=== PATIENT | female | born 1990 | race Caucasian/White ===

== ENCOUNTER 2023-02-12 18:15 | Emergency (ER) | payer OTHER ==
[~2023-02-12] VITALS: Ht 160 cm; Wt 79.4 kg
[2023-02-12 18:23] VITALS: BP 119/79; PULSE 97; RESP 17; TEMP 97.9; O2SAT 100
[2023-02-12] MEDS ORDERED: ONDANSETRON 4 MG ODT PO ONE (18:35)
[2023-02-12] MEDS ORDERED: KETOROLAC 30 MG/ML VIAL IVP ONE (18:55)
[2023-02-12] MEDS ORDERED: NACL 0.9% 1,000 ML IV ONE (18:55)
[2023-02-12 19:10] LABS: BASOPHILS % (AUTO) 0.4 % (0.0-2.0); EOSINOPHILS # (AUTO) 0.1 K/uL (0-0.4); EOSINOPHILS % (AUTO) 0.7 % (0.0-4.0); HEMATOCRIT 40.2 % (36-48); HEMOGLOBIN 13.6 g/dL (12.0-16.0); LYMPHOCYTES # (AUTO) 1.7 K/uL (2.5-16.5); LYMPHOCYTES % (AUTO) 21.4 % (20.5-51.1); MEAN CORPUSCULAR HEMOGLOBIN 31 pg (27-31); MEAN CORPUSCULAR HGB CONC 34 g/dL (33-37); MONOCYTES # (AUTO) 0.4 K/uL (0.8-1.0); MONOCYTES % (AUTO) 4.8 % (1.7-9.3); NEUTROPHILS # (AUTO) 5.9 K/uL (1.8-7.7); NEUTROPHILS % (AUTO) 72.7 % (42.2-75.2); PLATELET COUNT (AUTO) 242 K/uL (140-450); RED BLOOD CELL COUNT(AUTO) 4.37 MIL/uL (4.20-5.40); RED CELL DISTRIBUTION WIDTH 13.7 % (11.6-13.7); WHITE BLOOD COUNT (AUTO) 8.1 K/uL (4.8-10.8)
[2023-02-12 19:28] LABS: ANION GAP 16.2 (8-16); CALCIUM 8.6 mg/dL (8.5-10.1); CARBON DIOXIDE 21.3 mmol/L (21-32); CREATININE 0.8 mg/dL (0.6-1.3); POTASSIUM 3.5 mmol/L (3.5-5.1); TOTAL BILIRUBIN 0.4 mg/dL (0.0-1.0); TOTAL PROTEIN, SERUM 7.9 g/dL (6.4-8.2)
[2023-02-12] MEDS ORDERED: ACETAMINOPHEN EXTRA STRENGTH 500 MG TAB PO ONE (19:55)
[2023-02-12 20:54] VITALS: BP 121/79; PULSE 97; RESP 17; TEMP 97.9; O2SAT 100
== END 2023-02-12 20:54 | disposition home or self-care (01) ==
LOC: MED 18:15
DX: R51.9 Headache, unspecified (principal); R42 Dizziness and giddiness; R07.9 Chest pain, unspecified; R11.0 Nausea; R20.0 Anesthesia of skin
CPT/HCPCS: 36415; 80053; 81025; 85025; 93005; 96361; 96374; 99284; J1885; J7030; Q0162